=== PATIENT | female | born 1980 | race American Indian/Alaskan Native ===

== ENCOUNTER 2017-05-05 10:51 | Emergency (ER) | payer SELFPAY | END 2017-05-05 10:52 | disposition left against medical advice (07) | LOC: ED 10:51 | DX: Z53.21 Procedure and treatment not carried out due to patient leaving prior to being seen by health care provider (principal) ==

== ENCOUNTER 2018-05-04 11:37 | Emergency (ER) | payer OTHER ==
[2018-05-04 11:51] VITALS: BP 94/62
[2018-05-04] MEDS ORDERED: TORADOL IM ONE (12:01)
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
[2018-05-04] MEDS ORDERED: IBUPROFEN PO ONE (12:10)
[2018-05-04] MEDS ORDERED: IBUPROFEN ONE (12:12)
--- NOTE | 2018-05-04 12:49 | XRay Report ---
AP AND LATERAL LUMBOSACRAL SPINE: History: Low back pain. Moderate disc space narrowing is identified at L5-S1. The remaining levels are within normal limits. The facet joints are in appropriate relationship. Minimal diffuse facet arthropathy is suspected. No evidence for compression deformity, subluxation or bone lesion. The sacrum and SI joints are unremarkable. IMPRESSION: Early degenerative changes L5-S1.
--- NOTE | 2018-05-04 12:50 | XRay Report ---
AP AND LATERAL CERVICAL SPINE: History: Neck pain. The vertebral bodies are well mineralized and normal in alignment and vertebral height with well preserved interspace distances. The visualized portions of the posterior elements are normal. IMPRESSION: Cervical spine within normal limits.
== END 2018-05-04 13:10 | disposition home or self-care (01) ==
LOC: ED 11:37
DX: S39.012A Strain of muscle, fascia and tendon of lower back, initial encounter (principal); S16.1XXA Strain of muscle, fascia and tendon at neck level, initial encounter; G43.001 Migraine without aura, not intractable, with status migrainosus; V89.2XXA Person injured in unspecified motor-vehicle accident, traffic, initial encounter; Y93.89 Activity, other specified; Y99.8 Other external cause status; Y92.410 Unspecified street and highway as the place of occurrence of the external cause
CPT/HCPCS: 72040; 72100; 99283; J1885